=== PATIENT | male | born 1945 | race Caucasian/White ===

== ENCOUNTER 2019-05-12 06:58 | Day surgery (SDC) | payer MEDICARE, OTHER ==
[~2019-05-12 06:58] MED LIST: Lactated Ringers 1,000 ML IV SCH; Sodium Chloride 0.9% 10 ML Syringe FLUSH PRN
[2019-05-12] MEDS ORDERED: Propofol 200 MG/20 ML SDV IV ONE (06:59)
[2019-05-12] MEDS ORDERED: Glycopyrrolate 0.2 MG/ML 5 ML MDV IV ONE (06:59)
--- NOTE | 2019-05-12 07:58 | PCM.HP.2 ---
H&P History of Present Illness - General Date of Service: 05/12/19 Admit Problem/Dx: Admission Diagnosis/Problem Admission Diagnosis/Problem Colonoscopy 73 yo wm due for colonoscopy. The pt is without complaints. Has a hx of polyps in the distant past. - Related Data Allergies/Adverse Reactions: Allergies Allergy/AdvReac Type Severity Reaction Status Date / Time apixaban [From Eliquis] Allergy Rash Verified 05/11/19 10:06 nitroglycerin AdvReac Hypotension Verified 05/11/19 10:06 tree nut AdvReac Nausea and Verified 05/11/19 10:06 Vomiting Home Medications: Home Meds Flecainide [Tambocor] 75 mg PO BID 05/11/19 [History] Metoprolol Tartrate [Lopressor] 12.5 mg PO BID 05/11/19 [History] Rivaroxaban [Xarelto] 20 mg PO DAILY 05/11/19 [History] atorvaSTATin [Lipitor] 10 mg PO BEDTIME 05/11/19 [History] Past Medical History HEENT History: Reports: None, Impaired Vision Cardiovascular History: Reports: Afib, Other (See Below) Other Cardiovascular History: superficial phlebitis of leg Respiratory History: Reports: None Gastrointestinal History: Reports: Colon Polyp Genitourinary History: Reports: None [employer] MAINTENANCE History: Reports: None Musculoskeletal History: Reports: None Neurological History: Reports: CVA, Other (See Below) Other Neuro History: DYSPHAGIA AND HEMIPLEGIA D/T CVA Psychiatric History: Reports: None Endocrine/Metabolic History: Reports: None Hematologic History: Reports: Anticoagulation Therapy Immunologic History: Reports: None Oncologic (Cancer) History: Reports: None Dermatologic History: Reports: None - Infectious Disease History Infectious Disease History: Reports: Chicken Pox, Measles, Shingles - Past Surgical History Head Surgeries/Procedures: Reports: None HEENT Surgical History: Reports: None Cardiovascular Surgical History: Reports: None Respiratory Surgical History: Reports: None GI Surgical History: Reports: Colonoscopy Male Surgical History: Reports: None Endocrine Surgical History: Reports: None Neurological Surgical History: Reports: None Musculoskeletal Surgical History: Reports: None Oncologic Surgical History: Reports: None Dermatological Surgical History: Reports: None Social & Family History - Family History HEENT: Reports: Hearing Impairment Cardiac: Reports: Hypertension Respiratory: Reports: COPD GI: Reports: Bowel Obstruction : Reports: Dialysis, Nephritis, Renal Calculus, UTI, Recurrent OBGYN: Reports: None Musculoskeletal: Reports: Fibromyalgia, Gout Neurological: Reports: Migraines Psychiatric: Reports: Depression, Emotional Problems, Other (See Below) Other Psychiatric Family History: brother after serving in [employer] Endocrine/Metabolic: Reports: Other (See Below) Other Endocrine/Metabolic Family History: daughter with thyroid cancer Oncologic: Reports: Breast, Thyroid - Tobacco Use Smoking Status *Q: Never Smoker - Caffeine Use Caffeine Use: Reports: None - Recreational Drug Use Recreational Drug Use: No Drug Use in Last 12 Months: No H&P Review of Systems - Review of Systems: Review Of Systems: See Below General: Reports: No Symptoms HEENT: Reports: Post Nasal Drip Pulmonary: Reports: No Symptoms Cardiovascular: Reports: Palpitations (rarely ) Gastrointestinal: Reports: No Symptoms Genitourinary: Reports: No Symptoms Neurological: Reports: Numbness, Pre-Existing Deficit, Weakness, Other (stroke rigth side ) Exam - Exam Exam: See Below - Vital Signs Vital Signs: Last Vital Signs Temp 98.8 F 05/12/19 07:24 Pulse 56 L 05/12/19 07:24 Resp 18 05/12/19 07:24 BP 149/61 H 05/12/19 07:24 Pulse Ox 99 05/12/19 07:24 Weight: 92.2 kg - Exam General: Alert, Oriented, Cooperative Lungs: Clear to Auscultation, Normal Respiratory Effort, Crackles Cardiovascular: Regular Rhythm GI/Abdominal Exam: Normal Bowel Sounds, Soft Back Exam: Normal Inspection Extremities: Limited Range of Motion Skin: Warm, Dry, Intact Neuro Extensive - Mental Status: Alert Neuro Extensive - Motor, Sensory, Reflexes: Motor/Sensory Deficits, Facial Palsy (R) *Q Meaningful Use (ADM) - VTE *Q VTE Anticoagulation Contraindications: Medical/Procedure Contrai - Problem List (1) Encounter for screening colonoscopy SNOMED Code(s): 262211998, [id number] ICD Code: Z12.11 - ENCOUNTER FOR SCREENING FOR MALIGNANT NEOPLASM OF COLON Status: Acute Current Visit: Yes Problem List Initiated/Reviewed/Updated: Yes Orders Last 24hrs: Active Orders 24 hr Category Date Time Status Patient Status [ADT] Routine ADT 05/12/19 06:45 Ordered Patient to Empty Bladder [RC] ASDIRECTED Care 05/12/19 06:45 Active Verify Patient Consent Obtain [RC] ASDIRECTED Care 05/12/19 06:45 Active Nothing Per Oral Diet [DIET] Diet 05/12/19 Breakfast Ordered Lactated Ringers [Ringers, Lactated] 1,000 ml Med 05/12/19 06:45 Active IV ASDIRECTED Sodium Chloride 0.9% [Saline Flush] Med 05/12/19 06:45 Active 10 ml FLUSH ASDIRECTED PRN Peripheral IV Insertion Adult [OM.PC] Routine Oth 05/12/19 06:45 Ordered Resuscitation Status Routine Resus Stat 05/11/19 10:12 Ordered Medication Orders Lactated Ringer's (Ringers, Lactated) 1,000 mls @ 125 mls/hr IV ASDIRECTED PRACHI Last Admin: 05/12/19 07:36 Dose: 125 mls/hr Sodium Chloride (Saline Flush) 10 ml FLUSH ASDIRECTED PRN PRN Reason: Keep Vein Open Assessment/Plan Comment:: Procedure and risks explained to the pt to include bleeding, infection perforation. Asks us to proceed. - Mortality Measure Prognosis:: Good
--- NOTE | 2019-05-12 08:17 | PCM.OPNOTE ---
- General Post-Op/Procedure Note Date of Surgery/Procedure: 05/12/19 Operative Procedure(s): c scope Findings: normal exam Pre Op Diagnosis: screening Post-Op Diagnosis: nl study Anesthesia Technique: MAC Primary Surgeon: Gaurav Nguyen Anesthesia Provider: Zeus Ballesteros Pathology: none Complications: None Condition: Good Free Text/Narrative:: see dictation
[2019-05-12 09:29] VITALS: BP 137/71; PULSE 57
--- NOTE | 2019-05-12 13:27 | OR ---
DATE OF OPERATION: 05/12/2019 SURGEON: Gaurav Nguyen MD PROCEDURE PERFORMED: Colonoscopy. PREOPERATIVE DIAGNOSIS: Need for screening colonoscopy. POSTOPERATIVE DIAGNOSIS: Normal exam. INDICATIONS FOR PROCEDURE: This 73-year-old white male presents for followup endoscopy. He was offered and accepted same. DESCRIPTION OF OPERATION: After an excellent IV sedation was administered, digital rectal exam was performed. No marked abnormality was noted. Flexible colonoscope was inserted and advanced to the cecum. Prep was excellent. The following findings were noted: Ascending colon, unremarkable. Transverse colon, unremarkable. Descending colon, unremarkable. Sigmoid and rectum, unremarkable. Colon was deflated, scope was removed. Patient tolerated the procedure well. RECOMMENDATIONS: A repeat colonoscopy going forward on a p.r.n. basis given the patient's age and comorbidities. /[id number] JULIETTE/KELLIE
== END 2019-05-12 09:48 | disposition home or self-care (01) ==
LOC: FB.SDS 06:58
PROVIDERS: ATTEND Surgery
DX: Z12.11 Encounter for screening for malignant neoplasm of colon (principal); I48.91 Unspecified atrial fibrillation; Z86.010 Personal history of colon polyps; Z79.01 Long term (current) use of anticoagulants; Z91.018 Allergy to other foods; Z88.8 Allergy status to other drugs, medicaments and biological substances; Z79.899 Other long term (current) drug therapy
CPT/HCPCS: 00812-QZ; J2704; J3490; J7120